=== PATIENT | female | born 1945 | race Caucasian/White ===

== ENCOUNTER 2019-01-27 14:17 | Inpatient (IN) ==
[2019-01-27] MEDS ORDERED: Aspirin 325 MG TABLET PO ONE (14:28)
[2019-01-27 16:13] LABS: Basophils % 0.2 %; Eosinophils # 0.1 K/mcL (0.0-0.6); Eosinophils % 1.7 %; Hematocrit 37.8 % (35.3-44.9); Immature Granulocytes % 0.4 % (0-4); Lymphocytes # 1.1 K/mcL (0.6-4.6); Lymphocytes % 23.8 %; Mean Corpuscular HGB Conc 31.7 g/dL (31.6-35.5); Mean Corpuscular Hemoglobin 31.3 pg (28.0-33.3); Mean Corpuscular Volume 98.4 fL (83.0-100.0); Mean Platelet Volume 9.9 fL (9.4-12.4); Monocytes # 0.5 K/mcL (0.0-1.3); Monocytes % 10.4 %; Neutrophils # 2.9 K/mcL (1.6-8.9); Platelet Count 200 K/mcL (140-400); Red Blood Count 3.84 M/mcL (3.82-4.97); Red Cell Distribution Width 13.1 % (11.5-14.5); Segmented Neutrophils % 63.5 %; White Blood Count 4.6 K/mcL (4.3-11.1)
[2019-01-27 16:34] LABS: BUN/Creatinine Ratio 13 (6-26); Blood Urea Nitrogen 13 mg/dL (8-23); Calcium 9.3 mg/dL (8.6-10.3); Carbon Dioxide 22 mEq/L (23-29); Chloride 106 mEq/L (98-107); Glucose 105 mg/dL (70-105); Osmolality,Calculated 286 (280-300); Potassium 4.3 mEq/L (3.5-5.1); Sodium 138 mEq/L (136-145); Troponin I < 0.03 ng/mL (< 0.04); eGFR For African Americans > 60 (> 60); eGFR For Non-African Americans 54 (> 60)
[2019-01-27 16:48] LABS: Thyroid Stimulating Hormone 3.031 mcIU/mL (0.340-5.600)
[2019-01-27] MEDS ORDERED: *HR* LORazepam 0.5 MG TABLET PO ONE (18:02)
[2019-01-27] MEDS ORDERED: *HR* LORazepam 2 MG/ML VIAL IVP PRN ×3 (18:03)
[2019-01-27] MEDS ORDERED: Furosemide 20 MG/2 ML VIAL IVP ONE (18:05)
[2019-01-27] MEDS ORDERED: Acetaminophen 325 MG TABLET PO PRN (18:06)
[2019-01-27] MEDS ORDERED: Melatonin 3 MG TABLET PO PRN (18:06)
[2019-01-27] MEDS: Thiamine (B-1) 100 MG, Folic Acid 1 MG, MVI, adult with vitamin K 10 ML in 0.9 % Sodi... IVPB SCH (21:39)
[2019-01-27] MEDS: *HR* Enoxaparin 80 MG/0.8 ML SYRINGE SQ SCH (21:58)
[2019-01-28] MEDS: *HR* Enoxaparin 80 MG/0.8 ML SYRINGE SQ SCH ×2 (05:44→18:22)
[2019-01-28 05:54] LABS: Basophils % 0.4 %; Eosinophils # 0.1 K/mcL (0.0-0.6); Eosinophils % 1.7 %; Hematocrit 35.7 % (35.3-44.9); Hemoglobin 11.2 g/dL (11.5-15.4); Immature Granulocytes % 0.4 % (0-4); Lymphocytes # 1.9 K/mcL (0.6-4.6); Lymphocytes % 35.9 %; Mean Corpuscular HGB Conc 31.4 g/dL (31.6-35.5); Mean Corpuscular Hemoglobin 30.9 pg (28.0-33.3); Mean Corpuscular Volume 98.6 fL (83.0-100.0); Monocytes # 0.5 K/mcL (0.0-1.3); Monocytes % 9.3 %; Neutrophils # 2.7 K/mcL (1.6-8.9); Platelet Count 199 K/mcL (140-400); Red Blood Count 3.62 M/mcL (3.82-4.97); Red Cell Distribution Width 12.9 % (11.5-14.5); Segmented Neutrophils % 52.3 %; White Blood Count 5.2 K/mcL (4.3-11.1)
[2019-01-28 06:13] LABS: BUN/Creatinine Ratio 13 (6-26); Blood Urea Nitrogen 11 mg/dL (8-23); Calcium 9.2 mg/dL (8.6-10.3); Carbon Dioxide 25 mEq/L (23-29); Chloride 107 mEq/L (98-107); Chol/HDL Ratio 3.4 (0-4.9); Cholesterol 110 mg/dL (< 200); Glucose 121 mg/dL (70-105); HDL Cholesterol 32 mg/dL (40-59); LDL Cholesterol,Calculated 63 mg/dL (0-99); Magnesium 2.2 mg/dL (1.6-2.6); Osmolality,Calculated 287 (280-300); Sodium 138 mEq/L (136-145); Triglycerides 75 mg/dL (< 150); eGFR For African Americans > 60 (> 60); eGFR For Non-African Americans > 60 (> 60)
[2019-01-28 08:55] LABS: Estimated Average Glucose 128 mg/dl
[2019-01-28 10:11] LABS: Amphetamine Screen,Urine Negative ng/mL (Cutoff=1000); Barbiturate Screen,Urine Negative ng/mL (Cutoff=200); Benzodiazepines Screen,Urine Negative ng/mL (Cutoff=200); Cannabinoid Screen,Urine Negative ng/mL (Cutoff = 50); Cocaine Screen,Urine Negative ng/mL (Cutoff= 300); Opiate Screen,Urine Negative ng/mL (Cutoff=300); Phencyclidine Screen,Urine Negative ng/mL (Cutoff=25)
[2019-01-28] MEDS: Diltiazem CD (24hr) 300 MG CAPSULE PO SCH (12:55)
[2019-01-28] MEDS ORDERED: Furosemide 20 MG/2 ML VIAL IVP ONE (13:52)
[2019-01-28] MEDS: Aspirin Enteric Coated 81 MG Tablet PO SCH (16:12)
[2019-01-28] MEDS: Levalbuterol Neb 0.63 MG/3 ML IH SCH ×2 (16:22→22:25)
[2019-01-28] MEDS: Thiamine (B-1) 100 MG, Folic Acid 1 MG, MVI, adult with vitamin K 10 ML in 0.9 % Sodi... IVPB SCH (18:22)
[2019-01-28] MEDS: Beer can PO SCH (21:24)
[2019-01-29] MEDS: Levalbuterol Neb 0.63 MG/3 ML IH SCH ×4 (03:16→22:36)
[2019-01-29] MEDS: *HR* Enoxaparin 80 MG/0.8 ML SYRINGE SQ SCH (05:20)
[2019-01-29 07:21] LABS: BUN/Creatinine Ratio 10 (6-26); Blood Urea Nitrogen 9 mg/dL (8-23); Calcium 8.7 mg/dL (8.6-10.3); Carbon Dioxide 23 mEq/L (23-29); Chloride 105 mEq/L (98-107); Glucose 127 mg/dL (70-105); Osmolality,Calculated 284 (280-300); Potassium 4.2 mEq/L (3.5-5.1); Sodium 137 mEq/L (136-145); eGFR For African Americans > 60 (> 60); eGFR For Non-African Americans > 60 (> 60)
[2019-01-29] MEDS: Diltiazem CD (24hr) 300 MG CAPSULE PO SCH (08:14)
[2019-01-29] MEDS: Aspirin Enteric Coated 81 MG Tablet PO SCH (08:14)
[2019-01-29] MEDS: Thiamine (B-1) 100 MG, Folic Acid 1 MG, MVI, adult with vitamin K 10 ML in 0.9 % Sodi... IVPB SCH (17:34)
[2019-01-29] MEDS: Beer can PO SCH (20:15)
[2019-01-30] MEDS: Levalbuterol Neb 0.63 MG/3 ML IH SCH ×3 (03:42→16:18)
[2019-01-30 07:11] LABS: BUN/Creatinine Ratio 10 (6-26); Blood Urea Nitrogen 8 mg/dL (8-23); Calcium 9.1 mg/dL (8.6-10.3); Carbon Dioxide 23 mEq/L (23-29); Chloride 106 mEq/L (98-107); Glucose 129 mg/dL (70-105); Magnesium 1.9 mg/dL (1.6-2.6); Osmolality,Calculated 286 (280-300); Sodium 138 mEq/L (136-145); eGFR For African Americans > 60 (> 60); eGFR For Non-African Americans > 60 (> 60)
[2019-01-30] MEDS: Diltiazem CD (24hr) 300 MG CAPSULE PO SCH (09:17)
[2019-01-30] MEDS: Aspirin Enteric Coated 81 MG Tablet PO SCH (09:18)
[2019-01-30 15:05] VITALS: BP 148/69
== END 2019-01-30 16:17 | disposition home or self-care (01) | DRG 309 ==
LOC: 3BNU 14:17 → EMEROOARM 14:17 → SUATTDRO 17:30 → 3BNU 18:12
PROVIDERS: ADMIT Internal Medicine; ATTEND Internal Medicine